=== PATIENT | female | born 1985 | race African-American/Black ===

== ENCOUNTER 2017-07-31 17:07 | Inpatient (IN) | payer MEDICAID, SELFPAY ==
[~2017-07-31 17:07] MED LIST: Dexamethasone 20 MG/5 ML VIAL ONE; Lidocaine 1% PF 5 ML VIAL ONE; Ondansetron HCl/PF 4 MG/2 ML Vial ONE; Propofol 200 MG/20 ML VIAL ONE; Succinylcholine Chloride 20 MG/ML 10 ml SYRINGE FS ONE
[2017-07-31] MEDS ORDERED: Mag-Al 1200 mg/1200 mg/30 ML UDCUP ONE (18:13)
[2017-07-31] MEDS ORDERED: Lidocaine Viscous Sol 2% 15 ml UD Cup ONE (18:13)
--- NOTE | 2017-07-31 20:24 | RAD ---
AP VIEW OF THE CHEST: 07/31/17 INDICATION: History of throat pain. Patient swallowed a fish bone. IMPRESSION: No radiopaque foreign body is evident. Lungs are clear. No pleural effusion or pneumothorax is eviden t. No acute osseous abnormality is evident. POS: [facility]
[2017-07-31 20:26] LABS: #Basophils 0.1 thou/uL (0.0-0.2); #Eosinphils 0.1 thou/uL (0.0-0.7); #Monocytes 0.3 thou/uL (0.11-0.59); #Neutrophils 3.4 thou/uL (1.40-6.50); %Basophils 1.3 % (0.0-1.0); %Eosinophils 1.3 % (0.0-10.0); %Lymphocytes 33.8 % (21.0-51.0); %Monocytes 5.8 % (0.0-10.0); %Neutrophils 57.9 % (42.0-75.0); Hemoglobin 12.2 g/dL (12.0-16.0); Mean Corpuscular HGB CONC 32.6 g/dL (32.0-36.0); Mean Corpuscular Hemoglobin 29.4 pg (27.0-31.0); Mean Platelet Volume 9.2 fL (7.4-10.4); Platelet Count 270 thou/uL (130-400); RBC Distribution Width 13.1 % (11.5-14.5); Red Blood Cell (RBC) Count 4.16 mill/uL (4.20-5.40); White Blood Cell (WBC) Count 5.9 thou/uL (4.8-10.8)
--- NOTE | 2017-07-31 20:26 | RAD ---
TWO VIEWS SOFT TISSUE NECK 07/31/17 INDICATION: Throat pain after swallowing a fish bone. FINDINGS: There is a radiopaque foreign body seen within the soft tissues just below the level of the aryepiglo ttic fold likely representing ingested fish bone. This is seen only on the lateral projection. Osseou s structures are within normal limits. IMPRESSION: Suspected fish bone seen at the level of the aryepiglottic fold on the lateral projection. This is no t well localized on the AP projection. POS: [facility]
[2017-07-31] MEDS ORDERED: Fentanyl 100 MCG/2 ML VIAL ONE ×2 (20:27→22:33)
[2017-07-31 20:44] LABS: ALT (SGPT) 17 U/L (8-55); AST (SGOT) 21 U/L (5-34); Albumin 4.4 g/dL (3.5-5.0); Alkaline Phosphatase 96 U/L (40-150); Anion Gap 9 mmol/L (10-20); BUN (Urea Nitrogen) 18 mg/dL (7.0-18.7); Bilirubin, Total 0.6 mg/dL (0.2-1.2); Calc. Creatinine Clearance 0 mL/min (70-130); Calcium 9.5 mg/dL (7.8-10.44); Carbon Dioxide 27 mmol/L (22-29); Chloride 108 mmol/L (98-107); Estimated GFR-MDRD 76; Globulin 3.4 g/dL (2.4-3.5); Glucose 92 mg/dL (70-105); Potassium 4.2 mmol/L (3.5-5.1); Protein, Total 7.8 g/dL (6.0-8.3); Sodium 140 mmol/L (136-145)
[2017-07-31] MEDS ORDERED: HYDROmorphone 2 MG/ML VIAL SLOW IVP PRN (22:11)
[2017-07-31] MEDS ORDERED: Promethazine HCl 25 MG/ML VIAL SLOW IVP PRN (22:11)
[2017-07-31] MEDS ORDERED: Promethazine HCl 25 MG/ML VIAL IM PRN (22:11)
[2017-07-31] MEDS ORDERED: Ondansetron HCl/PF 4 MG/2 ML Vial IVP PRN (22:11)
--- NOTE | 2017-07-31 22:49 | CON ---
DATE OF CONSULTATION: 07/31/2017 REASON FOR CONSULTATION: Foreign body in throat. HISTORY OF PRESENT ILLNESS: Ms. Aranda is a pleasant 31-year-old -[place] female from [facility] ho is originally from [place] who was eating a fish soup this evening when she accidentally swall owed a fishbone that became lodged in her throat and became very painful. She came to the emergency room where she has some trismus, has some throat pain and difficulty handling secretions. Her breath ing is fine, but she has not been able to swallow liquids. A 2-view of the neck on the lateral image shows a small sliver which appears to be probably a fishbone at the upper esophageal sphincter. It is unclear if it is in the soft tissue or it is in the esophagus itself. It slants down anteriorly, it seems more superior right behind the arytenoid cartilage and then slants down slightly right in fr ont of the fifth cervical vertebra. PAST MEDICAL HISTORY: Negative. PAST SURGICAL HISTORY: Negative. MEDICATIONS: None. ALLERGIES: None. REVIEW OF SYSTEMS: No history of asthma or breathing disorders. She does have neck pain and is a li ttle bit tender to palpation of her neck. She is reluctant to let me touch her neck. There is no cr epitus. She cannot open her mouth very wide even look at the back of her throat. PHYSICAL EXAMINATION: VITAL SIGNS: Blood pressure 142/85, respirations 22, temperature 98, pulse 78. HEENT: The patient is reluctant to open her mouth wide. She is spitting up her secretions. I canno t examine her throat or mouth because she will not open wide. NECK: Slight tender all over. There is no crepitus. There are no masses. She is reluctant to let me touch it. There is no stridor on this into the neck. CARDIOVASCULAR: Heart has regular rate and rhythm. ABDOMEN: Soft, nontender. EXTREMITIES: No clubbing, cyanosis or edema. LABORATORY AND X-RAY FINDINGS: Notable for a base met profile that was normal. Liver function tests are normal. Lactic acid 0.8. CBC is normal. test apparently ordered, but not back. Breanna hammonds denies . She states her last menstrual period was last 3 weeks. ASSESSMENT: Foreign body in the neck, seems to be a fishbone, it possibly can be in the soft tissue, could be in the esophageal lumen, could be in the back of throat. ENT is presently not available. RECOMMENDATIONS: At this time, we will move to endoscopy to see if we can remove the foreign body. I explained the patient's risks of infection. If this is penetrated into the soft tissue, it cannot be removed. The risks of bleeding, risk of general anesthesia including respiratory and airway issue s. She understands these and wished to proceed.
[2017-07-31] MEDS ORDERED: Dextrose 5% in Water 1,000 ML IV SCH (23:45)
[2017-07-31] MEDS ORDERED: Fentanyl 100 MCG/2 ML VIAL SLOW IVP PRN (23:54)
[2017-07-31] MEDS ORDERED: Acetaminophen 1,000 MG in Premix Bag 1 BAG IVPB PRN (23:54)
[2017-07-31] MEDS ORDERED: Piperacillin/Tazobactam 3.375 GM in Sodium Chloride 0.9% 100 ML IVPB SCH (23:59)
[2017-08-01 00:09] VITALS: BMI 32.0
[2017-08-01] MEDS: Sodium Chloride 0.9% 1,000 ML IV SCH ×2 (00:27→11:12)
[2017-08-01] MEDS: Piperacillin/Tazobactam 3.375 GM in Sodium Chloride 0.9% 100 ML IVPB SCH ×3 (00:28→11:12)
[2017-08-01] MEDS ORDERED: Loratadine 10 MG TAB PO PRN (04:48)
[2017-08-01] MEDS ORDERED: hydrALAZINE 20 MG/ML VIAL SLOW IVP PRN (04:48)
[2017-08-01] MEDS ORDERED: Ondansetron HCl/PF 4 MG/2 ML Vial IVP PRN (04:48)
[2017-08-01] MEDS ORDERED: Benzonatate 100 MG CAP PO PRN (04:48)
[2017-08-01] MEDS ORDERED: Mag-Al 1200 mg/1200 mg/30 ML UDCUP PO PRN (04:48)
[2017-08-01] MEDS ORDERED: Calcium Carbonate 500 MG ChewTAB PO PRN (04:48)
[2017-08-01] MEDS ORDERED: Bisacodyl 5 MG TAB PO PRN (04:48)
[2017-08-01] MEDS ORDERED: Diabetic Tussin 200 MG/10 ML UDCUP PO PRN (04:48)
[2017-08-01] MEDS ORDERED: Senokot 8.6 MG TAB PO PRN (04:48)
[2017-08-01] MEDS ORDERED: Acetaminophen 325 MG TAB PO PRN (04:48)
[2017-08-01] MEDS ORDERED: Lidocaine Viscous Sol 2% 15 ml UD Cup SSP PRN (04:50)
--- NOTE | 2017-08-01 05:19 | HP ---
DATE OF ADMISSION: 08/01/2017 PRIMARY CARE PHYSICIAN: None. CHIEF COMPLAINT: Feeling of a bone stuck in her throat. HISTORY OF PRESENTING ILLNESS: Ms. Aranda is a very pleasant 31-year-old female without any significa nt past medical history who presented to the emergency room with complaints of a possible fish bone s tuck in her throat. History is mainly obtained by the patient herself and case has been discussed wi th Dr. Mcconnell who is admitting this patient. Ms. Aranda reported that she has been in her usual health up until when she was having lunch yesterday afternoon. She was eating fish and felt that she ingested a fish bone and started to cough aggressi vely and vomited 3 times. She was having difficult time coughing it up. She felt that the fish bone was stuck in her throat and started to have 10/10 throat pain with difficulty opening the mouth and swallowing. She denies any shortness of breath or difficulty breathing. She presented to the emerge ncy room and is hemodynamically stable and with 100% oxygen saturation on room air. Chest x-ray was done which did not reveal any foreign body masses, pneumothorax or infiltrates. A neck x-ray was don e which was suspicious for possible fish bone at the level of epiglottic fold. Gastroenterology was consulted and Dr. Mcconnell took the patient for endoscopy. She underwent an EGD which was unremarkable . ENT was consulted and she eventually underwent a laryngoscopy by Dr. Galindo which is also reported ly within normal limit. The plan was to discharge her after the normal exams, but she is still havin g a hard time swallowing and is unable to keep anything orally down. She would need to be admitted f or IV fluid resuscitation and possible IV antibiotics as per Gastroenterology. There is a suspicion of some injury in the back of her throat with possible chances of infection. Please note that no for eign body was found on endoscopy with EGD or laryngoscopy. PAST MEDICAL HISTORY: None. PAST SURGICAL HISTORY: 1. section. 2. IUD insertion. MEDICATIONS: None. ALLERGIES: None. FAMILY HISTORY: No significant family history of premature coronary artery disease. Her father has hypertension and diabetes. SOCIAL HISTORY: She is . She has no history of drug, tobacco or alcohol abuse. REVIEW OF SYSTEMS: She complains of sore throat and difficulty with swallowing otherwise unremarkabl e. The following complete review of systems was negative, unless otherwise mentioned in the HPI or b elow: Constitutional: Weight loss or gain, ability to conduct usual activities. Skin: Rash, itching. Eyes: Double vision, pain. ENT/Mouth: Nose bleeding, neck stiffness, pain, tenderness. Cardiovascular: Palpitations, dyspnea on exertion, orthopnea. Respiratory: Shortness of breath, wheezing, cough, hemoptysis, fever or night sweats. Gastrointestinal: Poor appetite, abdominal pain, heartburn, nausea, vomiting, constipation, or diarr hea. Genitourinary: Urgency, frequency, dysuria, nocturia. Musculoskeletal: Pain, swelling. Neurologic/Psychiatric: Anxiety, depression. Allergy/Immunologic: Skin rash, bleeding tendency. LABORATORY DATA AND IMAGING DATA: CBC and CMP unremarkable. Soft tissue x-ray of the neck was done prior to the EGD which showed suspected fish bone at the level of the aryepiglottic fold. Chest x-ra y by my review is unremarkable. PHYSICAL EXAMINATION: VITAL SIGNS: Most recent vital signs are temperature 98.2, pulse of 70, respirations 16, saturating 100% on room air, blood pressure 124/85. GENERAL: No acute distress, awake, alert, oriented x3. HEENT: Head is normocephalic, atraumatic. She has some erythema in the posterior pharyngeal wall wi thout any significant swelling. Mucous membrane is moist and pink. Pupils are equal and reactive to light and accommodation. NECK: Supple without any lymphadenopathy, JVD or bruit. CHEST: Clear to auscultation without any wheezing, rales or rhonchi. Rhythm is regular without any murmur, rubs or gallops. ABDOMEN: Soft, nontender, nondistended with positive bowel sounds. EXTREMITIES: Free of any cyanosis, clubbing, or edema. NEUROLOGIC: Nonfocal. SKIN: Free of any rashes or bruises for warm and dry to touch. PSYCHIATRIC: Normal affect. IMPRESSION AND PLAN: 1. Odynophagia. Most likely the patient has passed the fish bone. Her EGD and laryngoscopy were un remarkable. At this time, the reason for her admission is difficulty to take anything orally and the possibility of infection in the posterior pharyngeal wall. She will be admitted for IV fluids and I V antibiotics empirically. She is currently hemodynamically stable. We will start her on full liqui d and add viscous lidocaine for symptomatic care. Further management as per the retail business analyst, Dr. Mcconnell. 2. Deep venous thrombosis and gastrointestinal prophylaxis. DISPOSITION: Ms. Aranda is being admitted as above and estimated length of stay is at least 3 midnigh .
[2017-08-01 05:48] LABS: #Lymphocytes 0.8 thou/uL (1.20-3.40); #Monocytes 0.1 thou/uL (0.11-0.59); #Neutrophils 7.3 thou/uL (1.40-6.50); %Basophils 0.2 % (0.0-1.0); %Eosinophils 0.2 % (0.0-10.0); %Lymphocytes 9.9 % (21.0-51.0); %Monocytes 0.6 % (0.0-10.0); %Neutrophils 89.2 % (42.0-75.0); Hemoglobin 11.1 g/dL (12.0-16.0); Mean Corpuscular HGB CONC 32.4 g/dL (32.0-36.0); Mean Corpuscular Hemoglobin 28.5 pg (27.0-31.0); Mean Corpuscular Volume 87.9 fl (81.0-99.0); Mean Platelet Volume 9.2 fL (7.4-10.4); Platelet Count 243 thou/uL (130-400); Red Blood Cell (RBC) Count 3.91 mill/uL (4.20-5.40); White Blood Cell (WBC) Count 8.2 thou/uL (4.8-10.8)
[2017-08-01 05:53] LABS: BHCG - Serum Negative (NEGATIVE); Pregs Control Background? CLEAR/WHITE (CLR/WHITE); Pregs Control Bar Appear? YES (CONTROL BAR)
[2017-08-01] MEDS ORDERED: Pantoprazole 40 MG VIAL IVP SCH (09:00)
[2017-08-01 12:51] VITALS: BP 115/74; TEMP 97.7
--- NOTE | 2017-08-01 19:54 | DIS ---
DISCHARGE DISPOSITION: Home. FOLLOWUP: Follow up with ENT, Dr. Tremaine Galindo in one week. The patient was seen and examined on the day of discharge. Denies any new complaints. No nausea, vo miting or abdominal pain reported. DISCHARGE MEDICATION: Augmentin 875 mg twice a day for 1 week per GI recommendation. SIGNIFICANT LABORATORY DATA: 1. CBC showed WBC 5.9 with hemoglobin 12.2. 2. Chemistry showed sodium 140, potassium 4.2, chloride 108, bicarbonate 27, BUN 18, creatinine 1.04 . 3. test was negative. INPATIENT PROCEDURES: The patient underwent EGD on 07/31/2017. BRIEF HOSPITAL COURSE: The patient is a 31-year-old female without any past medical history, who pre sented to the emergency room with foreign body in the throat. The patient was eating a fish soup thi s evening when she accidentally swallowed a fish bone that became lodged in her throat and became rama y painful. The x-ray of the neck confirmed a small fish bone. The patient was taken for EGD; radha leiva, the fish bone was not localized. GI recommended antibiotic treatment due to some inflammation in the throat. The patient has been cleared by Gastroenterology for discharge. FINAL DIAGNOSES: 1. Foreign body in the throat. 2. Odynophagia secondary to #1. The patient most likely passed the fish bone. Laryngoscopy and EGD were unremarkable. 3. Chronic kidney disease, stage 2. 4. Obesity with a BMI 32.0 Plan of care was discussed with the patient. She stated understanding.
--- NOTE | 2017-08-02 11:30 | OP ---
PREOPERATIVE DIAGNOSES: Suspected foreign body in the pharynx, proximal esophagus, fish bone. POSTOPERATIVE DIAGNOSES: There seems to be some edema and one red spot either abrasion or puncture w ound on the superior aspect of the posterior arytenoid cartilage. No foreign body seen here. FINDINGS: At the time of her intubation for airway management, we looked in the back of the GlideScope and saw no foreign body. The esophagus showed no foreign body or puncture wounds or edema from the upper esophageal sphincter down to the lower esophageal sphincter. Stomach full of food. The duodenum was normal. RECOMMENDATIONS: I have called Dr. Tremaine Galindo from the ENT for ENT consultation. He said he will come and do a direct laryngoscopy and look at things. At this point, it seems that either we are no t seeing the foreign body. It has passed or it has gone into the soft tissue. . I think he d oes not see a foreign body obligated to get a CT scan of the neck soft tissue. ANESTHESIA: General endotracheal anesthesia. PROCEDURE IN DETAIL: After the patient was informed of the risks, benefits, possible complications _ ____ GlideScope to evaluate her pharynx. When she was sedated, we saw no foreign body in the pharynx . No overt trauma except for some edema on the arytenoids when she was intubated as noted above. At this point in time, the upper endoscope was advanced very carefully into the throat, the mouth, the pharynx was evaluated to the best of our ability with edema noted of the posterior arytenoid mucosa. It is consistent with the appearance of where the level would have been on the x-ray. The scope was then gently manipulated around the arytenoid cartilage in both the vallecula's and no foreign body w as seen, there are no puncture wounds or bleeding. The scope was then gently introduced through the upper esophageal sphincter. No puncture wounds were seen there. No foreign body was seen. The uppe r esophagus was clear. The remainder of the esophagus appeared normal. We went into the stomach and saw passing the stomach, there was large amount of food there. We were unable to make out a small f ishbone in the matter of food that was there. Retroflexed views in the stomach revealed no view of t he lower esophageal sphincter. The stomach was otherwise normal except for the food that cannot be v isualized very well. The pylorus duodenal bulb was normal as was the second portion of the duodenum. The scope was removed, then the upper esophageal sphincter and posterior pharynx arytenoid area was again investigated cannot see anything except for the edema. At this time, I recalled ENT and asked him to come and evaluate. They are going to come, perform a laryngoscopy and evaluate the pat ient.
--- NOTE | 2017-08-02 11:58 | OP ---
DATE OF PROCEDURE: 07/31/2017 This is an intraoperative consultation by Dr. Mcconnell for evaluation of foreign body ingestion. BRIEF HISTORY: A 31-year-old female who apparently was eating fish this evening and noticed a sudden sharp pain and difficulty swallowing consistent with a fishbone being stuck in her throat. She was seen in the emergency room. Neck x-ray was suspicious for a foreign body which would be consistent w ith a fishbone located in the upper esophageal inlet. The patient was having difficulty swallowing. PROCEDURE IN DETAIL: The risks, benefits, and alternatives were discussed with Dr. Mcconnell for EGD an d foreign body removal. During EGD, they intubated with a GlideScope and noticed the laryngeal inlet and airway was clear. A 7.0 tube was placed without complications. Flexible esophagoscopy was perf ormed by Dr. Mcconnell and showed no lesions from the proximal esophagus to the distal esophagus, there was a small area of redness located around the arytenoid area, arrived to find the patient was stable in the operating room and intubated. The Dedo laryngoscope was then used to examine the oral cavity , oropharynx was noted to be clear of any mucosal lesions other than tonsillar hypertrophy with tonsi l stones present. No evidence of foreign body. The piriform sinuses, vallecula, epiglottis true voc al cords and visualized portions of the subglottic airway were clear. There was a small 5 mm area of redness just paramedian on the right side on the posterior pharyngeal wall at the level of the postc ricoid mucosa. This area was gently probed with suction and a small cup forceps. There was no forei gn body palpated or removed. It appeared to be a puncture/laceration only. There is no associated e joselyn or erythema of what was described. Patient was then returned to anesthesia and was awakened wit hout complications and taken to recovery room. The patient tolerated this procedure well.
== END 2017-08-01 14:45 | disposition home or self-care (01) | DRG 605 ==
LOC: ERS 17:07 → SDC/OP 21:58 → OBSVTOIN 23:56 → SURG B 23:56
PROVIDERS: ADMIT Internal Medicine; ATTEND Internal Medicine
PROC: 0DJ08ZZ Inspection of Upper Intestinal Tract, Via Natural or Artificial Opening Endoscopic (ICD-10-PCS; principal; 2017-07-31)
DX: S10.15XA Superficial foreign body of throat, initial encounter (principal); R13.10 Dysphagia, unspecified; X58.XXXA Exposure to other specified factors, initial encounter; Y92.9 Unspecified place or not applicable; N18.2 Chronic kidney disease, stage 2 (mild); E66.9 Obesity, unspecified; Z68.32 Body mass index [BMI] 32.0-32.9, adult
CPT/HCPCS: 36415; 70360; 71045; 80053; 83605; 84703; 85025; 96374; C9113; J1100; J2001; J2405; J2543; J2704; J3010; J7050